=== PATIENT | male | born 1965 | race Caucasian/White ===

== ENCOUNTER → 2023-08-05 15:09 | Outpatient (REF) | payer OTHER, SELFPAY | LOC: HWRAD 15:09 | PROVIDERS: ATTENDING PHYSICIAN Family Medicine | DX: R07.9 Chest pain, unspecified (principal) | CPT/HCPCS: 71046 ==

== ENCOUNTER → 2023-10-03 16:02 | Outpatient (REF) | payer OTHER, SELFPAY | LOC: HWRAD 16:02 | PROVIDERS: ATTENDING PHYSICIAN Family Medicine | DX: H34.8122 Central retinal vein occlusion, left eye, stable (principal); R06.02 Shortness of breath; R07.9 Chest pain, unspecified | CPT/HCPCS: 70450; 71260; Q9967 ==

== ENCOUNTER → 2023-10-14 15:57 | Outpatient (REF) | payer OTHER, SELFPAY | LOC: HWRCS 15:57 | PROVIDERS: ATTENDING PHYSICIAN Family Medicine | DX: H34.8122 Central retinal vein occlusion, left eye, stable (principal); R06.02 Shortness of breath; R07.9 Chest pain, unspecified | CPT/HCPCS: 93306 ==

== ENCOUNTER → 2023-12-26 12:33 | Outpatient (REF) | payer OTHER, SELFPAY ==
--- NOTE | 2023-12-26 13:38 | PTCARENOTE ---
Pt here for Echo Bubble Study. Bubble Study performed per protocol with aseptic technique. Left medial antecubital 22 G PC site utilized, IV site clear, no redness, no edema, rapid blood flow. [facility], pt denies any pain at site. Pt
tolerated procedure well, offers no complaints. No change in status.
== END ==
LOC: RCS 12:33
PROVIDERS: ATTENDING PHYSICIAN Internal Medicine Interventional Cardiology; FAMILY PHYSICIAN Family Medicine
DX: I51.7 Cardiomegaly (principal)
CPT/HCPCS: 93307

== ENCOUNTER 2024-06-19 06:23 | Day surgery (SDC) | payer OTHER, SELFPAY | END 2024-06-19 12:15 | disposition home or self-care (01) | LOC: GI 06:23 | PROVIDERS: ATTENDING PHYSICIAN Specialist | DX: Z12.11 Encounter for screening for malignant neoplasm of colon (principal); K57.30 Diverticulosis of large intestine without perforation or abscess without bleeding; D12.3 Benign neoplasm of transverse colon; K63.5 Polyp of colon; Z86.0101 Personal history of adenomatous and serrated colon polyps | CPT/HCPCS: 45385; 45380; 88305 ==